=== PATIENT | male | born 1990 | race African-American/Black ===

== ENCOUNTER 2022-06-07 05:45 | Emergency (ER) | payer MEDICAID, OTHER ==
[~2022-06-07] VITALS: Ht 188 cm; Wt 250.0 kg
[2022-06-07 05:45] VITALS: BP 144/94
[2022-06-07] MEDS ORDERED: cefTRIAXone SOD 1,000 MG VL IM ONE (07:15)
[2022-06-07 07:26] LABS: Urine Bacteria NONE SEEN /hpf (None Seen); Urine Blood Negative /uL (Negative); Urine Specific Gravity 1.024 (1.001-1.035); Urine WBC 1 /hpf (0 - 3)
[2022-06-07] MEDS ORDERED: LIDOCAINE 1% HCL (LOCAL ANESTH.) INJ 20ML MDV IJ ONE (07:30)
[2022-06-07] MEDS ORDERED: DOXY-346 PO (07:43)
== END 2022-06-07 07:47 | disposition home or self-care (01) ==
LOC: ER 05:45
DX: N39.0 Urinary tract infection, site not specified (principal); A64 Unspecified sexually transmitted disease
CPT/HCPCS: 81001; 96372; 99283; J0696; J2001